=== PATIENT | female | born 1990 | race Caucasian/White ===

== ENCOUNTER 2017-07-21 07:14 | Inpatient (IN) ==
[2017-07-21] MEDS ORDERED: ceFAZolin 2,000 MG in SODIUM CHLORIDE 0.9% 100 ML IV ONE (08:05)
[2017-07-21] MEDS ORDERED: CITRIC ACID/SODIUM CITRATE 30 ML UDCUP PO ONE (08:05)
[2017-07-21] MEDS ORDERED: FAMOTIDINE 20 MG/2 ML VIAL IV ONE (08:05)
[2017-07-21] MEDS ORDERED: OXYTOCIN 10 UNIT/ML VIAL IM ONE (08:26)
[2017-07-21] MEDS ORDERED: OXYTOCIN/LR 20 UNIT/1,000 ML BAG IV ONE (08:26)
[2017-07-21] MEDS ORDERED: LACTATED RINGERS 1,000 ML IV SCH (08:30)
[2017-07-21 08:32] LABS: Basophils % 0.3 % (0.0-0.8); Eosinophils # 0.1 10*3/uL (0.0-0.87); Eosinophils % 0.9 % (0.00-10.9); Hematocrit 32.9 VOL% (35.7-47.0); Immature Granulocytes % 0.8 %; Immature Granulocytes Absolute 0.09 #; Lymphocytes # 1.9 10*3/uL (1.4-4.0); Lymphocytes % 16.3 % (21.3-54.2); Mean Corpuscular HGB Conc 33.4 GM/DL (32-36); Mean Corpuscular Hemoglobin 29 PG (27-34); Mean Corpuscular Volume 87.3 FL (87-102); Mean Platelet Volume 11.3 FL (9.6-12.0); Monocytes # 0.9 10*3/uL (0.11-0.8); Monocytes % 7.6 % (1.7-12.7); Neutrophils # 8.4 10*3/uL (1.4-7.4); Neutrophils % 74.1 % (38.7-73.9); Platelet Count 212 T/CUMM (130-400); Red Blood Count 3.77 MC/CUMM (3.8-5.5); Red Cell Distribution Width 13.2 % (9.3-17.3); White Blood Count 11.4 T/CUMM (4-12)
[2017-07-21] MEDS ORDERED: LACTATED RINGERS 1,000 ML IV ONE (08:34)
[2017-07-21 09:00] LABS: Alanine Aminotransferase < 9 U/L (13-56); Albumin 2.5 G/DL (3.4-5.0); Alkaline Phosphatase 96 U/L (45-117); Aspartate Amino Transferase 10 U/L (0-37); Bilirubin,Total < 0.39 MG/DL (0.2-1.0); Blood Urea Nitrogen 6 MG/DL (7-18); Calcium 8.5 MG/DL (8.5-10.1); Glucose 82 MG/DL (74-106); Osmolality,Calculated 271.7 MOS/KG (273-304); Potassium 3.5 MMOL/L (3.5-5.1); Sodium 138 MMOL/L (136-145); Total Protein 6.4 G/DL (6.4-8.3)
[2017-07-21] MEDS ORDERED: OXYTOCIN/LR 30 UNIT/1,000 ML BAG IV ONE (09:00)
[2017-07-21] MEDS ORDERED: PHENYLEPHRINE 1 MG/10 ML SYRINGE IV ONE (09:09)
[2017-07-21] MEDS ORDERED: ONDANSETRON 4 MG/2 ML VIAL ONE (09:09)
--- NOTE | 2017-07-21 10:07 | Operative Note ---
Date of procedure: 07/21/17 Procedure: Preoperative diagnosis: Term , 39 weeks repeat section Postoperative diagnosis: Same Anesthesia:[] Regional anesthesia Estimated blood loss: [] 300 Surgeon: Dr. Hernadez Findings: [] Female infant born at 9:41 AM, 7 lbs. 1 oz., Apgars was 9 at 1 minute 9 at 5 minutes, cord blood and cord gas obtained Complications: None Procedure: Low transverse section The patient was taken to the operating suite heart tones were obtained prior to and after regional anesthesia was obtained. She was placed in supine position her abdomen was prepped and draped in usual manner for major abdominal surgery. Through an abdominal incision the skin, subcutaneous, fascial layer and peritoneal the abdomen was entered. The bladder flap was created and a low transverse incision was made.. Fluid was clear and normal amount X, Apgars, the placenta was delivered and sent to lab for further evaluation. Injected with intrauterine Pitocin. The first layer of the uterus was closed with #1 Vicryl in a continuous locking manner. Close to imbricate the first layer with #1 Vicryl. The peritoneum was approximated with #2-0 Vicryl.[] All the last sponges and instruments were accounted for -2.) #2-0 Vicryl. Fascia was approximated with #0-0 Maxon.. The skin was approximated with guy. She tolerated procedure well and was taken to recovery room in stable condition. Surgeon / Physician: Jessica Hernadez Results - Labs CBC & BMP: 07/21/17 08:20 07/21/17 08:20
--- NOTE | 2017-07-21 10:09 | OB/GYN History & Physical ---
History of Present Illness Chief complaint: In for repeat section due to previous section. History of present illness: Ms. Mcqueen is a 27 year old female who is a 3 para 1 AB 1 who presented to the labor department for repeat section due to previous section. The risks and benefits of been thoroughly discussed with this patient and her significant other and all parties are in agreement with plan of care. Her PHILIP is 07/28/2017 for an estimated gestational age of 39 weeks. The patient received her care at the [facility], she received routine care and her course was uneventful. labs: She is a positive, RPR is nonreactive, hepatitis B negative, HIV negative, rubella is immune, GBS culture status unknown. Review of systems is negative with exception of a previous section 1 Allergies Allergy/AdvReac Type Severity Reaction Status Date / Time No Known Allergies Allergy Verified 07/06/17 12:04 12 point system: reviewed and no additional remarkable complaints except as stated Medical,Surgical,& Family Hx - Medical History Medical History: noncontributory - Social History Smoking Status: Never smoker Exam ALCOHOLIC COUNSELOR - Constitutional General appearance: no acute distress - Antepartum / Post Antepartum Exam Cervix - Dilatation: Deferred Breast: bilateral: normal Abdomen obstetrics: Present: bowel sounds normal Uterus exam: Present: enlarged () - Respiratory Respiratory exam: Present: clear to auscultation bilaterally - Cardiovascular Cardiovascular exam: Present: regular rate and rhythm - GI/Abdominal GI/Abdominal exam: Present: normal bowel sounds, soft - Extremities Exam Extremities exam: Present: normal inspection - Neurological Exam Neurological exam: Present: alert, oriented X3 - Psychiatric Psychiatric exam: Present: normal affect, normal mood - Skin Skin exam: Present: normal color, warm Assessment and Plan (1) Previous section Status: Acute Assessment and plan: Admit IV fluids Preop and informed consent for repeat section Anticipate viable infant Current Visit: Yes Results - Labs CBC & BMP: 07/21/17 08:20 07/21/17 08:20
[2017-07-21] MEDS ORDERED: MORPHINE 10 MG/10 ML VIAL ONE (10:18)
[2017-07-21] MEDS ORDERED: fentaNYL 100 MCG/2 ML VIAL ONE (10:18)
[2017-07-21 10:22] LABS: Cord Arterial Blood HCO3 19.8 MMOL/L
--- NOTE | 2017-07-21 10:22 | Anesthesia Post-Op ---
Anesthesia Post OP - Post Ansesthetic Evaluation Patient seen in post op: Yes Resp: within normal limits CV: within normal limits Mental: within normal limits Temp: within normal limits [id number]-[id number]: within normal limits Nausea and Vomiting: within normal limits Pain: within normal limits
[2017-07-21 10:24] LABS: Cord Venous Blood HCO3 20.7 MMOL/L; Cord Venous Blood PCO2 52.7 MMHG; Cord Venous Blood PO2 18.8
[2017-07-21 10:25] LABS: Apearance,Urine Clear (Clear); Bilirubin,Urine Negative (Negative); Blood, Urine NEGATIVE (Negative); Glucose,Urine (UA) Negative (Negative); Hyaline Casts,Urine 1 /LPF (0-3); Ketones,Urine Negative (Negative); Nitrite,Urine Negative (Negative); Protein,Urine Negative; RBC,Urine 1 /HPF (0-4); Squamous Epithelial Cell,Urine Occasional /HPF (0-10); Urine Color Yellow (Yellow); WBC,Urine 1 /HPF (0-6)
[2017-07-21 10:26] LABS: Urine Urobilinogen 0.2 EU/DL (0.2-1.0)
[2017-07-21] MEDS ORDERED: diphenhydrAMINE 50 MG/1 ML VIAL IV PRN (10:57)
[2017-07-21] MEDS ORDERED: SIMETHICONE CHEW 80 MG TABLET PO PRN (12:57)
[2017-07-21] MEDS ORDERED: RHO(D) IMMUNE GLOBULIN 300 MCG SYRINGE IM ONE (12:57)
[2017-07-21] MEDS ORDERED: ONDANSETRON 4 MG/2 ML VIAL IV PRN (12:57)
[2017-07-21] MEDS ORDERED: ACETAMINOPHEN 325 MG TABLET PO PRN (12:57)
[2017-07-21] MEDS ORDERED: HYDROmorphone 2 MG/1 ML VIAL IV PRN (12:58)
[2017-07-21] MEDS ORDERED: LEVALBUTEROL 1.25 MG/3 ML NEB RESP TX PRN (13:32)
[2017-07-21 16:45] LABS: Basophils % 0.2 % (0.0-0.8); Eosinophils % 0.2 % (0.00-10.9); Hematocrit 29.9 VOL% (35.7-47.0); Hemoglobin 10.2 GM/DL (12.0-16.0); Immature Granulocytes % 0.7 %; Immature Granulocytes Absolute 0.12 #; Lymphocytes % 12.2 % (21.3-54.2); Mean Corpuscular HGB Conc 34.1 GM/DL (32-36); Mean Corpuscular Hemoglobin 30 PG (27-34); Mean Corpuscular Volume 87.9 FL (87-102); Mean Platelet Volume 11.5 FL (9.6-12.0); Monocytes % 5.7 % (1.7-12.7); Neutrophils # 13.6 10*3/uL (1.4-7.4); Platelet Count 188 T/CUMM (130-400); Red Cell Distribution Width 13.1 % (9.3-17.3); White Blood Count 16.8 T/CUMM (4-12)
[2017-07-21] MEDS: IBUPROFEN 800 MG TABLET PO PRN (19:49)
[2017-07-21] MEDS: LACTATED RINGERS 1,000 ML IV SCH ×2 (20:10→20:18)
[2017-07-21] MEDS: DOCUSATE SODIUM 100 MG CAPSULE PO SCH (21:50)
[2017-07-22] MEDS: LACTATED RINGERS 1,000 ML IV SCH (05:01)
[2017-07-22] MEDS: diphenhydrAMINE 50 MG/1 ML VIAL IM SCH (05:19)
[2017-07-22] MEDS: IBUPROFEN 800 MG TABLET PO PRN ×2 (05:35→17:25)
[2017-07-22 07:22] LABS: Basophils % 0.3 % (0.0-0.8); Eosinophils # 0.2 10*3/uL (0.0-0.87); Eosinophils % 1.5 % (0.00-10.9); Hematocrit 27.9 VOL% (35.7-47.0); Hemoglobin 9.2 GM/DL (12.0-16.0); Immature Granulocytes % 0.8 %; Immature Granulocytes Absolute 0.09 #; Lymphocytes # 1.3 10*3/uL (1.4-4.0); Lymphocytes % 10.8 % (21.3-54.2); Mean Corpuscular Hemoglobin 29 PG (27-34); Mean Corpuscular Volume 88.3 FL (87-102); Mean Platelet Volume 11.1 FL (9.6-12.0); Monocytes # 0.9 10*3/uL (0.11-0.8); Monocytes % 7.3 % (1.7-12.7); Neutrophils # 9.3 10*3/uL (1.4-7.4); Neutrophils % 79.3 % (38.7-73.9); Platelet Count 155 T/CUMM (130-400); Red Blood Count 3.16 MC/CUMM (3.8-5.5); Red Cell Distribution Width 13.2 % (9.3-17.3); White Blood Count 11.7 T/CUMM (4-12)
[2017-07-22] MEDS: MULTIVITAMIN (PRENATAL) TABLET PO SCH (09:33)
[2017-07-22] MEDS: DOCUSATE SODIUM 100 MG CAPSULE PO SCH ×2 (09:33→20:46)
[2017-07-22] MEDS: FERROUS SULFATE 325 MG TABLET PO SCH ×2 (09:33→20:46)
--- NOTE | 2017-07-22 09:44 | OB/GYN Progress Note ---
Assessment and Plan (1) S/P repeat low transverse Status: Acute Assessment and plan: Initiate routine postop orders. Current Visit: Yes (2) Previous section Status: Acute Current Visit: Yes ORIGINATION SPECIALIST - PN: Subj Interval history: Stable with no complaints. Bonding well with infant. Exam ORIGINATION SPECIALIST - Constitutional Vitals: Vital Signs Temp Pulse Resp BP Pulse Ox 07/22/17 07:34 97.3 F L 76 20 98/56 98 07/22/17 04:00 97 F L 87 18 106/61 100 07/22/17 03:00 20 07/22/17 02:00 20 07/22/17 01:00 18 07/22/17 00:00 96.2 F L 71 18 91/53 99 07/21/17 23:00 20 07/21/17 20:00 97 F L 90 20 103/57 99 07/21/17 15:45 71 20 105/61 98 07/21/17 14:45 69 20 105/62 98 07/21/17 13:45 87 20 136/73 98 07/21/17 13:15 63 20 110/57 98 07/21/17 12:45 98.0 F 69 20 115/63 99 General appearance: no acute distress - Antepartum / Post Post Exam Breast: bilateral: normal Abdomen obstetrics: Present: bowel sounds normal Vagina: Present: normal moisture, discharge (Light lochia rubra) Uterus exam: Present: enlarged (Fundus firm and midline) Anus/Rectum: Present: normal perianal skin - Respiratory Respiratory exam: Present: clear to auscultation bilaterally - Cardiovascular Cardiovascular exam: Present: regular rate and rhythm - GI/Abdominal GI/Abdominal exam: Present: normal bowel sounds, soft - Extremities Exam Extremities exam: Present: normal inspection - Neurological Exam Neurological exam: Present: alert, oriented X3 - Psychiatric Psychiatric exam: Present: normal affect, normal mood - Skin Skin exam: Present: normal color, warm Results - Labs CBC & BMP: 07/22/17 07:13 07/21/17 08:20
[2017-07-22] MEDS: MAGNESIUM HYDROXIDE SUSP 30 ML UDCUP PO PRN (17:24)
[2017-07-23] MEDS: IBUPROFEN 800 MG TABLET PO PRN ×2 (05:34→12:56)
[2017-07-23] MEDS: MAGNESIUM HYDROXIDE SUSP 30 ML UDCUP PO PRN (09:35)
[2017-07-23] MEDS: DOCUSATE SODIUM 100 MG CAPSULE PO SCH (09:35)
[2017-07-23] MEDS: FERROUS SULFATE 325 MG TABLET PO SCH (09:35)
[2017-07-23] MEDS: MULTIVITAMIN (PRENATAL) TABLET PO SCH (09:35)
--- NOTE | 2017-07-23 11:30 | Discharge Summary ---
Hospital Course - Hospital Course Hospital Course: Postoperative day #2 No shortness of breath chest pain or palpitation Lungs are clear cardiac exam benign Abdomen soft incision sites intact Extremities well with no limits neurologic grossly intact Assessment plan We will discharge today Follow-up our office in approximately 2 weeks. Diagnosis - Discharge Diagnosis (1) Previous section Status: Acute Exam - Constitutional Vitals: Period Temp Pulse Resp BP Sys/Glass Pulse Ox Last 24 Hr 96.7 F-97.4 F 73-90 17-20 95-112/58-68 98-99 DS: Provider Date of admission: 07/21/17 08:05 Primary care physician: . No PCP Attending physician on admission: Jessica Hernadez MD Consults: 07/21/17 08:05 Consult to Anesthesiology [CONS] Routine Consulting Provider: Reason for Anesthesiology: Pre-op Clearance 07/21/17 12:57 Consult to Patient Support Assistant [CONS] Routine Consult Patient Support Assistant: Breast Feeding Discharging clinician: Jessica Hernadez MD
[2017-07-23 11:51] VITALS: BP 110/45
== END 2017-07-23 18:30 | disposition home or self-care (01) | DRG 540 ==
LOC: N.LD 07:14 → N.OB 12:24
PROVIDERS: ADMIT Obstetrics & Gynecology; ATTEND Obstetrics & Gynecology
PROC: LDCSECT (ICD-10-PCS; 2017-07-21 08:00)

== ENCOUNTER 2019-02-13 06:54 | Inpatient (IN) ==
[2019-02-13] MEDS ORDERED: LACTATED RINGERS 1,000 ML IV SCH ×2 (07:30→10:00)
[2019-02-13] MEDS ORDERED: FAMOTIDINE 20 MG/2 ML VIAL IV ONE (07:33)
[2019-02-13] MEDS ORDERED: LACTATED RINGERS 1,000 ML IV ONE (07:33)
[2019-02-13] MEDS ORDERED: CITRIC ACID/SODIUM CITRATE 30 ML UDCUP PO ONE (07:33)
[2019-02-13 07:46] LABS: Basophils % 0.3 % (0.0-0.8); Eosinophils # 0.1 10*3/uL (0.0-0.87); Hematocrit 32.6 VOL% (35.7-47.0); Immature Granulocytes % 0.6 %; Immature Granulocytes Absolute 0.08 #; Lymphocytes % 23.2 % (21.3-54.2); Mean Corpuscular HGB Conc 30.7 GM/DL (32-36); Mean Corpuscular Hemoglobin 25 PG (27-34); Mean Corpuscular Volume 82.7 FL (87-102); Mean Platelet Volume 10.7 FL (9.6-12.0); Monocytes % 7.3 % (1.7-12.7); Neutrophils # 8.8 10*3/uL (1.4-7.4); Neutrophils % 67.6 % (38.7-73.9); Platelet Count 337 T/CUMM (130-400); Red Blood Count 3.94 MC/CUMM (3.8-5.5); Red Cell Distribution Width 14.6 % (9.3-17.3); White Blood Count 13.1 T/CUMM (4-12)
[2019-02-13] MEDS ORDERED: ONDANSETRON 4 MG/2 ML VIAL ONE (07:58)
[2019-02-13] MEDS ORDERED: MORPHINE 10 MG/10 ML VIAL ONE (07:58)
[2019-02-13] MEDS ORDERED: fentaNYL 100 MCG/2 ML VIAL ONE (07:58)
[2019-02-13] MEDS ORDERED: BUPIVACAINE SPINAL 0.75% 2 ML AMP SPINAL ONE (07:58)
[2019-02-13] MEDS ORDERED: ceFAZolin 2,000 MG in PREMIX 1 EACH IV ONE (08:00)
[2019-02-13 08:09] LABS: Alanine Aminotransferase 9 U/L (13-56); Albumin 2.5 G/DL (3.4-5.0); Alkaline Phosphatase 117 U/L (45-117); Aspartate Amino Transferase 9 U/L (0-37); Bilirubin,Total < 0.39 MG/DL (0.2-1.0); Blood Urea Nitrogen 9 MG/DL (7-18); Calcium 8.7 MG/DL (8.5-10.1); Glucose 87 MG/DL (74-106); Osmolality,Calculated 272.7 MOS/KG (273-304); Potassium 3.9 MMOL/L (3.5-5.1); Sodium 138 MMOL/L (136-145); Total Protein 6.5 G/DL (6.4-8.3)
[2019-02-13] MEDS ORDERED: OXYTOCIN 10 UNIT/ML VIAL IM ONE (08:30)
[2019-02-13] MEDS ORDERED: OXYTOCIN/LR 30 UNIT/1,000 ML BAG IV ONE (08:30)
[2019-02-13] MEDS ORDERED: OXYTOCIN/LR 20 UNIT/1,000 ML BAG IV ONE (09:37)
[2019-02-13] MEDS ORDERED: ONDANSETRON 4 MG/2 ML VIAL IV PRN (09:37)
[2019-02-13] MEDS ORDERED: ACETAMINOPHEN 325 MG TABLET PO PRN (09:37)
[2019-02-13] MEDS ORDERED: SIMETHICONE CHEW 80 MG TABLET PO PRN (09:37)
[2019-02-13] MEDS ORDERED: PHENYLEPHRINE 1 MG/10 ML SYRINGE IV ONE (09:48)
[2019-02-13 09:50] LABS: Cord Arterial Blood HCO3 21.1 MMOL/L
[2019-02-13 09:51] LABS: Cord Venous Blood PCO2 46.2 MMHG; Cord Venous Blood PO2 25.1 MMHG
[2019-02-13 09:52] LABS: Apearance,Urine CLEAR (Clear); Bacteria,Urine Occasional /HPF (Few); Bilirubin,Urine Negative (Negative); Blood, Urine Negative (Negative); Glucose,Urine (UA) Negative (Negative); Ketones,Urine Negative (Negative); Mucus,Urine Occasional /LPF (Occasional); Nitrite,Urine Negative (Negative); Protein,Urine Negative; RBC,Urine 1 /HPF (0-4); Squamous Epithelial Cell,Urine Occasional /HPF (0-10); Urine Color Yellow (Yellow); Urine Specific Gravity 1.014 (1.001-1.035); Urine Urobilinogen < 2.0 EU/DL (0.2-1.0); WBC,Urine <1 /HPF (0-6)
[2019-02-13] MEDS ORDERED: RHO(D) IMMUNE GLOBULIN 300 MCG SYRINGE IM ONE (10:00)
[2019-02-13] MEDS ORDERED: MEPERIDINE 50 MG/1 ML VIAL ONE (13:53)
[2019-02-13] MEDS ORDERED: MEPERIDINE 50 MG/1 ML VIAL IV PRN (13:56)
[2019-02-13] MEDS ORDERED: diphenhydrAMINE 50 MG/1 ML VIAL ONE (15:48)
[2019-02-13] MEDS: ceFAZolin 1,000 MG in SYRINGE 1 EACH IV SCH (15:52)
[2019-02-13] MEDS ORDERED: diphenhydrAMINE 50 MG/1 ML VIAL IV PRN (15:52)
[2019-02-13 16:56] LABS: Basophils # 0.1 10*3/uL (0.0-0.2); Basophils % 0.3 % (0.0-0.8); Eosinophils # 0.1 10*3/uL (0.0-0.87); Eosinophils % 0.5 % (0.00-10.9); Hematocrit 29.1 VOL% (35.7-47.0); Hemoglobin 8.9 GM/DL (12.0-16.0); Immature Granulocytes % 0.7 %; Immature Granulocytes Absolute 0.13 #; Lymphocytes % 17.1 % (21.3-54.2); Mean Corpuscular HGB Conc 30.6 GM/DL (32-36); Mean Corpuscular Hemoglobin 25 PG (27-34); Mean Corpuscular Volume 82.4 FL (87-102); Mean Platelet Volume 10.4 FL (9.6-12.0); Monocytes # 1.1 10*3/uL (0.11-0.8); Monocytes % 6.2 % (1.7-12.7); Neutrophils # 13.1 10*3/uL (1.4-7.4); Neutrophils % 75.2 % (38.7-73.9); Platelet Count 287 T/CUMM (130-400); Red Blood Count 3.53 MC/CUMM (3.8-5.5); Red Cell Distribution Width 14.6 % (9.3-17.3); White Blood Count 17.4 T/CUMM (4-12)
[2019-02-13] MEDS: FERROUS SULFATE 325 MG TABLET PO SCH (22:03)
[2019-02-13] MEDS: DOCUSATE SODIUM 100 MG CAPSULE PO SCH (22:03)
[2019-02-14] MEDS: ceFAZolin 1,000 MG in SYRINGE 1 EACH IV SCH (00:13)
[2019-02-14 05:01] LABS: Basophils % 0.2 % (0.0-0.8); Eosinophils # 0.2 10*3/uL (0.0-0.87); Hematocrit 30.6 VOL% (35.7-47.0); Hemoglobin 9.1 GM/DL (12.0-16.0); Immature Granulocytes % 0.8 %; Immature Granulocytes Absolute 0.12 #; Lymphocytes # 2.7 10*3/uL (1.4-4.0); Mean Corpuscular HGB Conc 29.7 GM/DL (32-36); Mean Corpuscular Hemoglobin 25 PG (27-34); Mean Corpuscular Volume 82.9 FL (87-102); Mean Platelet Volume 10.6 FL (9.6-12.0); Monocytes # 1.2 10*3/uL (0.11-0.8); Monocytes % 7.7 % (1.7-12.7); Neutrophils # 11.6 10*3/uL (1.4-7.4); Neutrophils % 73.3 % (38.7-73.9); Platelet Count 292 T/CUMM (130-400); Red Blood Count 3.69 MC/CUMM (3.8-5.5); Red Cell Distribution Width 14.6 % (9.3-17.3); White Blood Count 15.8 T/CUMM (4-12)
[2019-02-14] MEDS: IBUPROFEN 800 MG TABLET PO PRN ×2 (06:16→16:14)
[2019-02-14] MEDS: MULTIVITAMIN (PRENATAL) TABLET PO SCH (08:46)
[2019-02-14] MEDS: METOCLOPRAMIDE 10 MG TABLET PO SCH ×2 (08:46→16:17)
[2019-02-14] MEDS: MAGNESIUM HYDROXIDE SUSP 30 ML UDCUP PO PRN (08:47)
[2019-02-14] MEDS: DOCUSATE SODIUM 100 MG CAPSULE PO SCH ×2 (08:47→21:11)
[2019-02-14] MEDS: FERROUS SULFATE 325 MG TABLET PO SCH ×2 (08:47→21:11)
[2019-02-14] MEDS ORDERED: BUTALBITAL/ACETAMIN/CAFFEINE 50-325-40 MG TABLET PO ONE (16:07)
[2019-02-14] MEDS ORDERED: SUMAtriptan 6 MG/0.5 ML VIAL SUBCUT ONE (16:08)
[2019-02-14] MEDS ORDERED: LACTATED RINGERS 1,000 ML IV ONE (16:10)
[2019-02-15] MEDS ORDERED: BUTALBITAL/ACETAMIN/CAFFEINE 50-325-40 MG TABLET PO PRN
[2019-02-15] MEDS: METOCLOPRAMIDE 10 MG TABLET PO SCH ×2 (00:22→08:54)
[2019-02-15] MEDS: BUTALBITAL/ACETAMIN/CAFFEINE 50-325-40 MG TABLET PO SCH ×2 (00:22→08:53)
[2019-02-15] MEDS: IBUPROFEN 800 MG TABLET PO PRN (00:27)
[2019-02-15 07:25] VITALS: BP 111/61
[2019-02-15] MEDS: MAGNESIUM HYDROXIDE SUSP 30 ML UDCUP PO PRN (08:52)
[2019-02-15] MEDS: MULTIVITAMIN (PRENATAL) TABLET PO SCH (08:53)
[2019-02-15] MEDS: FERROUS SULFATE 325 MG TABLET PO SCH (08:53)
[2019-02-15] MEDS: DOCUSATE SODIUM 100 MG CAPSULE PO SCH (08:53)
[2019-02-15] MEDS ORDERED: DIPH/TET/ACEL PERT BOOSTER VACCINE 0.5 ML VIAL IM ONE (10:42)
== END 2019-02-15 11:50 | disposition home or self-care (01) | DRG 540 ==
LOC: N.LDOUT 06:54 → N.LD 06:55 → N.OB 13:55
PROVIDERS: ADMIT Obstetrics & Gynecology; ATTEND Obstetrics & Gynecology